=== PATIENT | male | born 1995 | race Hispanic/Latino ===

== ENCOUNTER 2021-02-28 05:53 | Emergency (ER) | payer SELFPAY ==
[2021-02-28 06:11] VITALS: BP 111/69
--- NOTE | 2021-02-28 06:18 | Event Note ---
ED Screening Note Date of service: 02/28/21 Time: 06:00 ED Screening Note: Patient is a 25 yo AA male with a h/o chronic seizures and noncompliant with his seizure medications that he also does not remember the name of presents to the ED with c/o persistent intermittent seizures frequently, at times 3 times every night. Patient states that he also had 2 witnessed seizure episodes in the last 6 hours at home. Patient states that the seizure episodes are typical of his chronic seizures but of late these have been more frequent. Patient admits to smoking marijuana and cigars. Patient denies dizziness, fever, chills, cough, chest pain, nausea and vomiting, abdominal pain or headache and syncope, head or neck injury. This initial assessment/diagnostic orders/clinical plan/treatment(s) is/are subject to change based on patients health status, clinical progression and re- assessment by fellow clinical providers in the ED. Further treatment and workup at subsequent clinical providers discretion. Patient/guardian urged not to elope from the ED as their condition may be serious if not clinically assessed and managed. Initial orders include: CMP, CBC, UA, UDS
== END 2021-02-28 06:44 | disposition left against medical advice (07) ==
LOC: ED 05:53
DX: G40.909 Epilepsy, unspecified, not intractable, without status epilepticus (principal); Z53.21 Procedure and treatment not carried out due to patient leaving prior to being seen by health care provider